=== PATIENT | male | born 1955 | race Caucasian/White ===

== ENCOUNTER → 2021-07-24 | Outpatient (CLI) | payer BC ==
--- NOTE | 2021-07-24 14:52 | RAD ---
MRI of the lumbar spine without contrast 07/24/2021 CLINICAL HISTORY: Low back pain which radiates down the right leg. Right leg weakness. TECHNIQUE: Unenhanced T1-weighted and T2-weighted sagittal and axial and inversion recovery sagittal images of the lumbar spine were obtained. FINDINGS: Minimal S-shaped curvature of the thoracolumbar spine is seen. Degenerative signal changes and varying degrees of loss of height are seen involving all of the disks of the lumbar spine. Degene rative signal changes are seen within the marrow surrounding these discs. The conus medullaris is nor mal morphology, position, and signal characteristics. At the L1-2 and L2-3 disc spaces there are mild generalized disc bulges. Degenerative changes are see n involving the facet joints bilaterally. These findings do not result in significant central spinal canal or neural foraminal stenosis. At the L3-4 disc space there is a mild to moderate generalized disc bulge. This is eccentric to the r ight. Superimposed on this disc bulge is a left paracentral/lateral focal disc protrusion. This measu res 4 mm in AP diameter. Degenerative changes are seen involving the facet joints bilaterally. There is mild ligamentum flavum hypertrophy bilaterally. There appears to be a 8 mm synovial cyst projectin g anteriorly and laterally from the lateral right facet joint. These findings when combined with prom inence of the posterior epidural fat result in mild central spinal canal stenosis. Mild to moderate r ight greater than left neural foraminal stenosis is seen. The synovial cyst may impinge to some degre e upon the exiting right L3 nerve root. Clinical correlation is recommended. At the L4-5 disc space there is a mild to moderate generalized disc bulge. This is eccentric to the r ight. Degenerative changes are seen involving the facet joints bilaterally. There is mild ligamentum flavum hypertrophy bilaterally. There is prominence of the posterior epidural fat. Findings when comb ined result in mild central spinal canal stenosis. Mild right greater than left neural foraminal sten osis is seen. At the L5-S1 disc space there is a mild to moderate generalized disc bulge. Degenerative changes are seen involving the facet joints bilaterally. There is mild ligamentum flavum hypertrophy bilaterally. These findings combined do not result in significant central spinal canal stenosis. Mild bilateral n eural foraminal stenosis is seen. IMPRESSION: The changes of degenerative disc disease are seen throughout the lumbar spine. These find ings result in mild central spinal canal stenosis at L3-4 and L4-5. Mild to moderate right greater th an left neural foraminal stenosis is seen at L3-4. Mild right greater than left neural foraminal sten osis is seen at L4-5. Mild bilateral neural foraminal stenosis is seen at L5-S1. At the L3-4 disc spa ce but appears to be a 8 mm synovial cyst is seen projecting anteriorly and laterally from the latera l aspect of the right facet joint. This may impinge to some degree upon the exiting right L3 nerve ro ot. Clinical correlation is recommended. Electronically signed by: Nghia Lezama MD (07/24/2021 2:49 PM) [id number]
== END ==
LOC: MRI 13:40
PROVIDERS: ATTEND Family Medicine
DX: M47.817 Spondylosis without myelopathy or radiculopathy, lumbosacral region (principal); M51.27 Other intervertebral disc displacement, lumbosacral region; M48.061 Spinal stenosis, lumbar region without neurogenic claudication; M54.41 Lumbago with sciatica, right side; R29.898 Other symptoms and signs involving the musculoskeletal system; M71.38 Other bursal cyst, other site
CPT/HCPCS: 72148